=== PATIENT | male | born 1975 | race Caucasian/White ===

== ENCOUNTER 2016-07-30 10:43 | Inpatient (IN) | payer OTHER, MEDICARE ==
[~2016-07-30 10:43] MED LIST: CEFU1TAB43; FEXO180 PO; HYDR-2951; LACTATED RINGER'S 1000 ML INJ 2,000 ML IV ONE; NEXI40CA PO; NIAC500 PO; NORMOSOL R INJ 2,000 ML IV ONE; ONDANSETRON HCL 4 MG/2 ML VIAL IV PUSH ONE; PHENYLEPH/NS 1000 MCG/10 ML SYR IV ONE; PROPOFOL 200 MG/20 ML AMP IV ONE; ePHEDrine/NS 25 MG/5 ML SYR IV ONE
[2016-07-30 10:45] VITALS: BP 142/76; PULSE 78; RESP 20; TEMP 97.8; O2SAT 100
--- NOTE | 2016-07-30 10:59 | PD ---
HPI Chief Complaint: Headache Time Seen by Provider: 10:59 Travel History International Travel<30 days: No Contact w/Intl Traveler<30days: No Traveled to known affect area: No History of Present Illness HPI 40-year-old male came to the emergency room with history of headache. Patient has cerebral palsy and history of hydrocephalus. 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 His parents are here with him and mom is giving a thorough history. He has the shunt revised 5 times in the last one was April 2016. She described the shunt getting infected at the scalp region and had to be repositioned on the other side. However there was a CAT scan done in May 2016 where everything was back to normal as per his neurosurgeon. This morning he woke up with a headache and he points to the frontal region. He said that he vomited once or twice. Patient is awake and alert. As per the mother there is no change in mental status. His vital signs were stable. Mom has a folder with she keeps thorough records of all his medical reports and results. She had a CD of his last CAT scan from May 2016 in case a comparison study needs to be done. [facility] Past Medical History Narrative Medical List of his past medical history is reviewed from the nursing note. Arthritis: No Asthma: No Heart Rhythm Problems: No Cardiovascular Problems: Yes Chest Pain: No Congestive Heart Failure: No COPD: No Cerebrovascular Accident: No Diminished Hearing: No GERD: Yes Genitourinary: No Hiatal Hernia: No Kidney Stones: Yes Musculoskeletal: Yes Neurologic: Yes Reproductive: No Respiratory: Yes Migraines: No Seizures: No Ulcer: No Past Surgical History Abdominal Surgery: No Cardiac Surgery: No Ear Surgery: No Endocrine Surgery: No Eye Surgery: No Genitourinary Surgery: No Gynecologic Surgery: No Neurologic Surgery: Yes (SEWING MACHINE OPERATOR SHUNT AND SPINAL) Oral Surgery: No Thoracic Surgery: No Social History Alcohol Use: No Tobacco Use: No Substance Use: No Allergies-Medications (Allergen,Severity, Reaction): Coded Allergies: Cipro (Verified Adverse Reaction, Severe, Arrhythmias, 07/09/11) Latex (Verified Adverse Reaction, Severe, Rash, 07/09/11) Reglan (Verified Adverse Reaction, Severe, 07/09/11) AMS Comments List of his allergies reviewed from the nursing note. Reported Meds & Prescriptions Reported Meds & Active Scripts Active Reported Robaxin (Methocarbamol) 500 Mg Tab 500 Mg PO TID [Allegry Shots] 1 Injection IM Q14DAY Prolia Inj (Denosumab) 60 Mg/Ml Inj 60 Mg SQ Q180D Flonase Allergy Relief Nasal [place] (Fluticasone Nasal [place]) 50 Mcg/Act [place] 100 Mcg EACH NARE DAILY Montelukast (Montelukast Sodium) 10 Mg Tab 10 Mg PO HS Fexofenadine-Pseudoephedrine ER 12 HR 60-120 Mg Tab 1 Tab PO DAILY Tramadol (Tramadol HCl) 50 Mg Tab 100 Mg PO BID PRN Baclofen 20 Mg Tab 40 Mg PO BID Meloxicam 15 Mg Tab 15 Mg PO DAILY Lisinopril 10 Mg Tab 10 Mg PO DAILY Nexium (Esomeprazole DR) 20 Mg Capdr 20 Mg PO DAILY Narrative Medication List of his home medications reviewed from the nursing note. Review of Systems Except as stated in HPI: all other systems reviewed are Neg Physical Exam Narrative GENERAL: Awake, alert, cerebral palsy SKIN: Warm and dry. HEAD: Atraumatic. Normocephalic. EYES: Pupils equal and round. No scleral icterus. No injection or drainage. ENT: No nasal bleeding or discharge. Mucous membranes pink and moist. NECK: Trachea midline. No JVD. CARDIOVASCULAR: Regular rate and rhythm. No murmur appreciated. RESPIRATORY: No accessory muscle use. Clear to auscultation. Breath sounds equal bilaterally. GASTROINTESTINAL: Abdomen soft, non-tender, nondistended. Hepatic and splenic margins not palpable. MUSCULOSKELETAL: No obvious deformities. No clubbing. No cyanosis. No edema. NEUROLOGICAL: Awake and alert. No obvious cranial nerve deficits. Motor grossly within normal limits. Normal speech. PSYCHIATRIC: Appropriate mood and affect; insight and judgment normal. Data Data Last Documented VS Vital Signs Date Time Temp Pulse Resp B/P Pulse Ox O2 Delivery O2 Flow Rate FiO2 07/30/16 11:22 81 18 136/83 97 Room Air 07/30/16 10:45 97.8 Orders Electrocardiogram (07/30/16 ) Ct Brain W/O Iv Contrast(Rout) (07/30/16 ) Prochlorperazine Inj (Compazine Inj) (07/30/16 11:15) Ondansetron Inj (Zofran Inj) (07/30/16 11:15) Complete Blood Count With Diff (07/30/16 11:06) Basic Metabolic Panel (Bmp) (07/30/16 11:06) Shunt Series (07/30/16 ) Ct Abd/Pel W Iv Contrast(Rout) (07/30/16 ) Blood Culture (07/30/16 13:06) Urinalysis - C+S If Indicated (07/30/16 13:06) C-Reactive Protein (Crp) (07/30/16 13:06) Iohexol 350 Inj (Omnipaque 350 Inj) (07/30/16 14:17) Urine Culture (07/30/16 13:50) Skull, Limited (<4 Views) (07/30/16 ) Admit Order (Ed Use Only) (07/30/16 15:14) Labs Laboratory Tests Test 07/30/16 07/30/16 11:20 13:50 White Blood Count 8.2 TH/MM3 Red Blood Count 5.01 MIL/MM3 Hemoglobin 13.1 GM/DL Hematocrit 39.5 % Mean Corpuscular Volume 78.8 FL Mean Corpuscular Hemoglobin 26.1 PG Mean Corpuscular Hemoglobin 33.2 % Concent Red Cell Distribution Width 16.4 % Platelet Count 228 TH/MM3 Mean Platelet Volume 8.8 FL Neutrophils (%) (Auto) 76.0 % Lymphocytes (%) (Auto) 16.4 % Monocytes (%) (Auto) 6.2 % Eosinophils (%) (Auto) 1.1 % Basophils (%) (Auto) 0.3 % Neutrophils # (Auto) 6.2 TH/MM3 Lymphocytes # (Auto) 1.3 TH/MM3 Monocytes # (Auto) 0.5 TH/MM3 Eosinophils # (Auto) 0.1 TH/MM3 Basophils # (Auto) 0.0 TH/MM3 CBC Comment DIFF FINAL Differential Comment Prothrombin Time 10.7 SEC Prothromb Time International 1.0 RATIO Ratio Sodium Level 143 MEQ/L Potassium Level 3.8 MEQ/L Chloride Level 107 MEQ/L Carbon Dioxide Level 28.0 MEQ/L Anion Gap 8 MEQ/L Blood Urea Nitrogen 14 MG/DL Creatinine 0.74 MG/DL Estimat Glomerular Filtration 117 ML/MIN Rate Random Glucose 130 MG/DL Calcium Level 8.2 MG/DL C-Reactive Protein 2.70 MG/DL Urine Color YELLOW Urine Turbidity HAZY Urine pH 6.0 Urine Specific [place] 1.031 Urine Protein TRACE mg/dL Urine Glucose (UA) NEG mg/dL Urine Ketones TRACE mg/dL Urine Occult Blood NEG Urine Nitrite POS Urine Bilirubin NEG Urine Urobilinogen LESS THAN 2.0 MG/DL Urine Leukocyte Esterase LARGE Urine RBC 5 /hpf Urine WBC 58 /hpf Urine WBC Clumps RARE Urine Squamous Epithelial 2 /hpf Cells Urine Bacteria MANY /hpf Urine Mucus FEW /lpf Microscopic Urinalysis Comment CATH-CULTURE IND MDM Medical Decision Making Medical Screen Exam Complete: Yes Emergency Medical Condition: Yes Medical Record Reviewed: Yes Interpretation(s) Twelve-lead EKG was reviewed by me. Sinus rhythm, normal axis, nonspecific ST- T wave changes. Heart rate of 79 bpm. Differential Diagnosis Hydrocephalus, shunt malfunction Narrative Course 12:46 PM blood test results are back and within normal limits. CT scan was compared by the radiologist with his past CT that was in the disc. The radiologist called me and let me know that there has been a definite interval change of the ventricles are 2-3 times more dilated than the CT study that was done in June 12, 2016. This would point towards shunt malfunction. Given the fact that patient is symptomatic I have put a call out for the neurosurgeon on-call. Awaiting for her to call back. I will also order a shunt series. Patient will require admission. 1:07 PM I just spoke with the neurosurgeon Dr. Beard and discussed the case with her. She remotely looked at the CT and wanted a CT of his abdomen and pelvis to look at the tubing. She would come down and see the patient and talked to the parents and then decide what she plans to do. I've asked if she wanted to admit the patient but once again she suggested that she would like to see the CAT scan first and then speak with the parents and then make a decision. Currently waiting for her evaluation and recommendations. 2:23 PM shunt series was read as normal. Dr. Beard is in the room evaluating the patient. CT of the abdomen and pelvis was done as per her request. Awaiting for the report on that. Procedures EKG Prior to Arrival: Yes Diagnosis Primary Impression: Hydrocephalus Additional Impressions: SEWING MACHINE OPERATOR shunt malfunction Headache Qualified Code: R51 - Acute intractable headache, unspecified headache type Vomiting Qualified Code: R11.11 - Non-intractable vomiting without nausea, unspecified vomiting type Admitting Information Admitting Physician Requests: Admit Selam Martinez MD Jul 30, 2016 10:59
[2016-07-30] MEDS ORDERED: LISI10TA3 PO (11:12)
[2016-07-30] MEDS ORDERED: MELO-1 PO (11:12)
[2016-07-30] MEDS ORDERED: FEXO1TAB PO (11:12)
[2016-07-30] MEDS ORDERED: [UNRECOGNIZED DRUG - OTHER] IM (11:12)
[2016-07-30] MEDS ORDERED: BACL20TA PO (11:12)
[2016-07-30] MEDS ORDERED: NEXI20CA PO (11:12)
[2016-07-30] MEDS ORDERED: TRAM50TA PO (11:12)
[2016-07-30] MEDS ORDERED: FLUT1SPR5 EACH NARE (11:12)
[2016-07-30] MEDS ORDERED: ROBA500T PO (11:12)
[2016-07-30] MEDS ORDERED: MONT10TA4 PO (11:12)
[2016-07-30] MEDS ORDERED: DENO60P SQ (11:12)
[2016-07-30] MEDS ORDERED: ONDANSETRON HCL 4 MG/2 ML VIAL IV PUSH ONE (11:15)
[2016-07-30] MEDS ORDERED: PROCHLORPERAZINE INJ 10 MG/2 ML VIAL IVS ONE (11:15)
[2016-07-30 11:22] VITALS: BP 136/83; PULSE 81; RESP 18; O2SAT 97
[2016-07-30 11:37] LABS: AUTOMATED NEUTROPHIL # 6.2 TH/MM3 (1.8-7.7); BASOPHIL % 0.3 % (0.0-2.0); EOSINOPHIL # 0.1 TH/MM3 (0-0.4); EOSINOPHIL % 1.1 % (0.0-4.0); HEMATOCRIT 39.5 % (39.0-51.0); HEMO FLAGS DIFF FINAL; LYMPH % 16.4 % (9.0-44.0); LYMPHOCYTE # 1.3 TH/MM3 (1.0-4.8); MEAN CELL VOLUME 78.8 FL (80.0-100.0); MEAN CORPUSCULAR HEMOGLOBIN 26.1 PG (27.0-34.0); MEAN CORPUSCULAR HGB CONC 33.2 % (32.0-36.0); MONO % 6.2 % (0.0-8.0); PLATELET COUNT 228 TH/MM3 (150-450); RED BLOOD COUNT 5.01 MIL/MM3 (4.50-5.90); RED CELL DISTRIBUTION WIDTH 16.4 % (11.6-17.2); WHITE BLOOD COUNT 8.2 TH/MM3 (4.0-11.0)
[2016-07-30 11:54] LABS: POTASSIUM 3.8 MEQ/L (3.5-5.1)
--- NOTE | 2016-07-30 12:08 | RADRPT ---
EXAM DATE/TIME: 07/30/2016 11:50 This report includes an Addendum and supersedes previous reports for this exam. [facility] COMPARISON: No previous studies available for comparison. EXTERNAL COMPARISON : [facility] June 06, 2016 INDICATIONS : Cephalgia; vomiting. Recent shunt surgey. RADIATION DOSE: 56.38 CTDIvol (mGy) MEDICAL HISTORY : Cardiovascular disease. Spina bifida SURGICAL HISTORY : Shunt. ENCOUNTER: Initial ACUITY: 1 day PAIN SCALE: 5/10 LOCATION: cranial TECHNIQUE: Multiple contiguous axial images were obtained of the head. Using automated exposure control and adj ustment of the mA and/or kV according to patient size, radiation dose was kept as low as reasonably a chievable to obtain optimal diagnostic quality images. FINDINGS: There no prior studies for comparison. The ventricles are moderately dilated bilaterally. There is a ventricular shunt in place on the left side extending into the lateral horn of the left ventricle. No focal or acute intracranial hemorrhage is demonstrated. No mass effect or midline shift is seen. Pos tsurgical changes are noted in the right occipital lobe area most likely from a previous shunt placem ent. The fourth ventricle is midline but very small in size. There is effacement of the sulci bilater ally suggestive of edema. The quadrigeminal plate cisterns appear to be mildly effaced. There is an o ld francisco hole on the right occipital bone. Otherwise the calvarium is grossly intact. CONCLUSION: 1. Moderate diffuse dilatation of the third and lateral ventricles with a left ventricular catheter i n place. 2. No acute intracranial hemorrhage. 3. Effacement of the sulci bilaterally and effacement of the quadrigeminal plate cisterns suggestive of edema. This needs to be correlated with patient's current physical and clinical exam. 4. No prior studies for comparison. Tulio Trejo MD on July 30, 2016 at 12:03 Board Certified Radiologist. This report was verified electronically. ADDENDUM: An outside CT scan performed on 06/06/2016 was just made available for comparison. There has been a s ignificant interval change since the prior study. On the prior study the ventricles were decompressed and normal in size. The ventricles are now diffusely dilated characteristics of new hydrocephalus. T his is causing effacement of the quadrigeminal plate cisterns as well as effacement of the sulci. Thi s most likely is from shunt failure. The findings were discussed by telephone with the ER physician. Tulio Trejo MD on July 30, 2016 at 12:47 Board Certified Radiologist. This report was verified electronically.
--- NOTE | 2016-07-30 13:57 | RADRPT ---
EXAM DATE/TIME: 07/30/2016 13:19 [facility] COMPARISON: No previous studies available for comparison. INDICATIONS : Pain and headache. MEDICAL HISTORY : Spina bifida. SURGICAL HISTORY : Shunt placement. Alejandro rods. ENCOUNTER: Initial ACUITY: 1 day PAIN SCORE: 5/10 LOCATION: Head. FINDINGS: Radiograph of the skull, neck, chest and abdomen performed to evaluate shunt patency. The shunt cath eter is seen entering the left posterior parietal region with its tip in the region of the body of th e left lateral ventricle. The catheter is continuous in its course terminating in the left lower abdomen No catheter disruption is identified. There is an old shunt catheter along the right chest. The lungs are clear bilaterally. There is evidence of previous thoracic and lumbar surgery with fusion. CONCLUSION: Intact shunt. Tulio Trejo MD on July 30, 2016 at 13:53 Board Certified Radiologist. This report was verified electronically.
[2016-07-30] MEDS ORDERED: IOHEXOL 350 MG/ML 10 ML VIAL (for RAD DIAG) IV ONE (14:17)
[2016-07-30 14:26] LABS: BACTERIA, URINE MANY /hpf; BLOOD, URINE NEG (NEG); COMMENT (UR) CATH-CULTURE IND; CULTURE IF INDICATED CATH CULTURE IND; GLUCOSE,URINE NEG (NEG); KETONE, URINE TRACE mg/dL (NEG); MUCUS URINE FEW /lpf (OCC); SQUAMOUS EPITHELIAL CELL URINE 2 /hpf (0-5); URINE COLOR YELLOW (YELLW/STRAW)
[2016-07-30 14:27] LABS: NITRITE,URINE POS (NEG)
--- NOTE | 2016-07-30 14:27 | RADRPT ---
EXAM DATE/TIME: 07/30/2016 14:01 [facility] COMPARISON: No previous studies available for comparison. INDICATIONS : Evaluate for pseudocyst. IV CONTRAST: 95 cc Omnipaque 350 (iohexol) IV ORAL CONTRAST: No oral contrast ingested. RADIATION DOSE: 10.96 CTDIvol (mGy) MEDICAL HISTORY : Spina bifida. SURGICAL HISTORY : Shunt. ENCOUNTER: Initial ACUITY: 1 day PAIN SCALE: 0/10 LOCATION: abdomen/pelvis TECHNIQUE: Volumetric scanning of the abdomen and pelvis was performed. Using automated exposure control and ad justment of the mA and/or kV according to patient size, radiation dose was kept as low as reasonably achievable to obtain optimal diagnostic quality images. FINDINGS: LOWER LUNGS: The visualized lower lungs are clear. LIVER: Homogeneous density without lesion. There is no dilation of the biliary tree. No calcified gallston es. SPLEEN: Normal size without lesion. PANCREAS: Within normal limits. KIDNEYS: Normal in size and shape. There is no mass or hydronephrosis. There is a 7 mm stone in the upper erika e right kidney not causing obstruction. ADRENAL GLANDS: Within normal limits. VASCULAR: There is no aortic aneurysm. BOWEL/MESENTERY: The stomach, small bowel, and colon demonstrate no acute abnormality. There is no free intraperitone al air or fluid. There is an intraperitoneal catheter in place characteristic of a THERAPY AIDE shunt. There do es not appear to be any significant fluid collections or loculated fluid collections in the region of the catheter. The catheter was positioned in the left lower quadrant. ABDOMINAL WALL: Within normal limits. RETROPERITONEUM: There is no lymphadenopathy. BLADDER: No wall thickening or mass. REPRODUCTIVE: Within normal limits. INGUINAL: There is no lymphadenopathy or hernia. MUSCULOSKELETAL: There is evidence of chronic deformity of the bony structures with evidence of previous spinal fusion . CONCLUSION: 1. 7 mm nonobstructing stone upper pole right kidney. 2. There is THERAPY AIDE shunt catheter in the left lower quadrant of the abdomen. No free fluid or loculated f luid collections are seen in the region of the catheter. 3. No acute intra-abdominal/pelvic pathology. Tulio Trejo MD on July 30, 2016 at 14:21 Board Certified Radiologist. This report was verified electronically.
--- NOTE | 2016-07-30 14:40 | EKG ---
Date Performed: 07/30/2016 Time Performed: 10:58:13 PTAGE: 40 years EKG: Sinus rhythm Compared to previous tracing, previously seen T wave changes have improved NORMAL ECG PREVIOUS TRACING : 07/10/2011 09.52 DOCTOR: Lebron Franco Interpretating Date/Time 07/30/2016 14:39:15
[2016-07-30 15:21] VITALS: BP 130/77; PULSE 59; RESP 18; O2SAT 96
--- NOTE | 2016-07-30 15:43 | HHI.HP ---
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 He had a recent shunt revision after 23 yrs of no shunt problems in [facility]. The wound dehisced and a new shunt was placed on he left. He had a low grade fever but no emesis and no abdominal pain. Review of Systems ROS Limitations: Altered Mental Status Constitutional: COMPLAINS OF: Fatigue Endocrine: DENIES: Heat/cold intolerance, Polydipsia, Polyuria, Polyphagia Eyes: DENIES: Blurred vision, Diplopia, Eye inflammation, Eye pain, Vision loss , Photosensitivity, Double Vision Ears, nose, mouth, throat: DENIES: Tinnitus, Hearing loss, Vertigo, Nasal discharge, Oral lesions, Throat pain, Hoarseness, Ear Pain, Running Nose, Epistaxis, Sinus Pain, Toothache, Odynophagia Respiratory: DENIES: Apneas, Cough, Snoring, Wheezing, Hemoptysis, Sputum production, Shortness of breath Cardiovascular: DENIES: Chest pain, Palpitations, Syncope, Dyspnea on Exertion , PND, Lower Extremity Edema, Orthopnea, Claudication Gastrointestinal: DENIES: Abdominal pain, Black stools, Bloody stools, Constipation, Diarrhea, Nausea, Vomiting, Difficulty Swallowing, Anorexia Musculoskeletal: COMPLAINS OF: Neck pain Integumentary: DENIES: Abnormal pigmentation, Nail changes, Pruritus, Rash Hematologic/lymphatic: DENIES: Bruising, Lymphadenopathy Immunologic/allergic: DENIES: Eczema, Urticaria Past Family Social History Allergies: Coded Allergies: Cipro (Verified Adverse Reaction, Severe, Arrhythmias, 07/09/11) Latex (Verified Adverse Reaction, Severe, Rash, 07/09/11) Reglan (Verified Adverse Reaction, Severe, 07/09/11) AMS Past Medical History MM, wheelchair bound, CIC on his own Hydrocephalus, VPS at 3 weeks. Scoliosis, Past Surgical History VPS revised at 3 weeks, at 12yrs, the last March and April 2016 Scoliosis surgery and scoliosis repair Reported Medications Reported Meds & Active Scripts Active Reported Robaxin (Methocarbamol) 500 Mg Tab 500 Mg PO TID [Allegry Shots] 1 Injection IM Q14DAY Prolia Inj (Denosumab) 60 Mg/Ml Inj 60 Mg SQ Q180D Flonase Allergy Relief Nasal [place] (Fluticasone Nasal [place]) 50 Mcg/Act [place] 100 Mcg EACH NARE DAILY Montelukast (Montelukast Sodium) 10 Mg Tab 10 Mg PO HS Fexofenadine-Pseudoephedrine ER 12 HR 60-120 Mg Tab 1 Tab PO DAILY Tramadol (Tramadol HCl) 50 Mg Tab 100 Mg PO BID PRN Baclofen 20 Mg Tab 40 Mg PO BID Meloxicam 15 Mg Tab 15 Mg PO DAILY Lisinopril 10 Mg Tab 10 Mg PO DAILY Nexium (Esomeprazole DR) 20 Mg Capdr 20 Mg PO DAILY Family History MM in the family, father with RA Social History Lives with the parents but is independent for self care Physical Exam Vital Signs Vital Signs Date Time Temp Pulse Resp B/P Pulse Ox O2 Delivery O2 Flow Rate FiO2 07/30/16 15:21 59 18 130/77 96 Room Air 07/30/16 11:22 81 18 136/83 97 Room Air 07/30/16 10:45 97.8 78 20 142/76 100 Room Air Physical Exam Awake but lethargic, answers simple questions, pupils 3mm reactive but eye movements are disconjugate, down beating nystagmus present Speech slow, attention good, follows commands Moves both upper extremities without difficulty Wounds on the head are well healed and dry, Abd soft and non tender, obese, No rashes, open soars Laboratory Laboratory Tests Test 07/30/16 07/30/16 11:20 13:50 White Blood Count 8.2 Red Blood Count 5.01 Hemoglobin 13.1 Hematocrit 39.5 Mean Corpuscular Volume 78.8 Mean Corpuscular Hemoglobin 26.1 Mean Corpuscular Hemoglobin 33.2 Concent Red Cell Distribution Width 16.4 Platelet Count 228 Mean Platelet Volume 8.8 Neutrophils (%) (Auto) 76.0 Lymphocytes (%) (Auto) 16.4 Monocytes (%) (Auto) 6.2 Eosinophils (%) (Auto) 1.1 Basophils (%) (Auto) 0.3 Neutrophils # (Auto) 6.2 Lymphocytes # (Auto) 1.3 Monocytes # (Auto) 0.5 Eosinophils # (Auto) 0.1 Basophils # (Auto) 0.0 CBC Comment DIFF FINAL Differential Comment Sodium Level 143 Potassium Level 3.8 Chloride Level 107 Carbon Dioxide Level 28.0 Anion Gap 8 Blood Urea Nitrogen 14 Creatinine 0.74 Estimat Glomerular Filtration 117 Rate Random Glucose 130 Calcium Level 8.2 C-Reactive Protein 2.70 Urine Color YELLOW Urine Turbidity HAZY Urine pH 6.0 Urine Specific [place] 1.031 Urine Protein TRACE Urine Glucose (UA) NEG Urine Ketones TRACE Urine Occult Blood NEG Urine Nitrite POS Urine Bilirubin NEG Urine Urobilinogen LESS THAN 2.0 Urine Leukocyte Esterase LARGE Urine RBC 5 Urine WBC 58 Urine WBC Clumps RARE Urine Squamous Epithelial 2 Cells Urine Bacteria MANY Urine Mucus FEW Microscopic Urinalysis Comment CATH-CULTURE IND Date/Time Procedure Status Source Growth 07/30/16 13:50 Urine Culture Received Urine Catheterized Urine Pending 07/30/16 13:45 Aerobic Blood Culture Received Blood Peripheral Pending 07/30/16 13:45 Anaerobic Blood Culture Received Blood Peripheral Pending Result Diagram: 07/30/16 1120 07/30/16 1120 Imaging Last Impressions Shunt Study (Imaging) 07/30/16 0000 Signed Impressions: Service Date/Time: Saturday, July 30, 2016 13:19 - CONCLUSION: Intact shunt. Tulio Trejo MD Head CT 07/30/16 0000 Signed Impressions: Service Date/Time: Saturday, July 30, 2016 11:50 - CONCLUSION: 1. Moderate diffuse dilatation of the third and lateral ventricles with a left ventricular catheter in place. 2. No acute intracranial hemorrhage. 3. Effacement of the sulci bilaterally and effacement of the quadrigeminal plate cisterns suggestive of edema. This needs to be correlated with patient's current physical and clinical exam. 4. No prior studies for comparison. Tulio Trejo MD ADDENDUM: An outside CT scan performed on 06/06/2016 was just made available for comparison. There has been a significant interval change since the prior study. On the prior study the ventricles were decompressed and normal in size. The ventricles are now diffusely dilated characteristics of new hydrocephalus. This is causing effacement of the quadrigeminal plate cisterns as well as effacement of the sulci. This most likely is from shunt failure. The findings were discussed by telephone with the ER physician. Tulio Trejo MD Abdomen/Pelvis CT 07/30/16 0000 Signed Impressions: Service Date/Time: Saturday, July 30, 2016 14:01 - CONCLUSION: 1. 7 mm nonobstructing stone upper pole right kidney. 2. There is LICENSING AND REGISTRATION DIRECTOR shunt catheter in the left lower quadrant of the abdomen. No free fluid or loculated fluid collections are seen in the region of the catheter. 3. No acute intra-abdominal/pelvic pathology. Tulio Trejo MD Assessment and Plan Diagnosis: (1) Malfunction of ventriculoperitoneal shunt ICD Code: T85.09XA Assessment and Plan Shunt malfunction, recent wound dehiscence, will a revision. The risk of infection, anesthesia, mechanical complications, blood clots and pneumonia were discussed with the mother. Problem Qualifiers (1) Malfunction of ventriculoperitoneal shunt: Qualified Code: T85.09XA - Malfunction of ventriculoperitoneal shunt, initial encounter Favian Beard Jul 30, 2016 15:43
--- NOTE | 2016-07-30 15:45 | RADRPT ---
EXAM DATE/TIME: 07/30/2016 14:38 [facility] COMPARISON: No previous studies available for comparison. INDICATIONS : Evaluate valve reading for Strata valve. MEDICAL HISTORY : None. SURGICAL HISTORY : Shunt placement. ENCOUNTER: Initial ACUITY: 1 day PAIN SCORE: 0/10 LOCATION: Skull. FINDINGS: Single spot film obtained. The triangular radiopaque density appears to point inferiorly. CONCLUSION: Valve components are somewhat blurry but the arrow appears to point inferiorly, unchanged from exam e magaly today. Edwin Quintana MD on July 30, 2016 at 15:39 Board Certified Radiologist. This report was verified electronically.
[2016-07-30] MEDS ORDERED: oxyCODONE/ACETAMINOPHEN 5 MG/325 MG TAB PO PRN (16:00)
[2016-07-30] MEDS ORDERED: MORPHINE SULFATE 4 MG/ML INJ IV PRN (16:00)
[2016-07-30] MEDS ORDERED: traMADol HCL 50 MG TAB PO PRN (16:15)
[2016-07-30] MEDS ORDERED: THROMBIN (TOPICAL) 5,000 UNIT VIAL ONE (16:46)
[2016-07-30] MEDS ORDERED: GENTAMICIN SULFATE 80 MG/2 ML VIAL ONE (16:47)
[2016-07-30] MEDS ORDERED: LIDOCAINE 1%/EPINEPHrine 1:100,000 SOLN 20 ML VIAL ONE (16:47)
[2016-07-30] MEDS ORDERED: GELFOAM SIZE 100 ONE ×2 (16:47→17:47)
[2016-07-30] MEDS: PANTOPRAZOLE SODIUM 40 MG VIAL IV SCH (16:49)
[2016-07-30] MEDS: ceFAZolin 2 GM PREMIX 50 ML IV SCH (16:50)
[2016-07-30 16:52] VITALS: BP 150/70; PULSE 87; RESP 18; O2SAT 96
[2016-07-30 17:02] LABS: PROTHROMBIN TIME - PATIENT 10.7 SEC (9.8-11.6)
[2016-07-30] MEDS ORDERED: fentaNYL CITRATE 250 MCG/5 ML AMP ONE ×2 (17:30→19:19)
[2016-07-30] MEDS ORDERED: FAMOTIDINE 20 MG/2 ML VIAL ONE (17:31)
[2016-07-30] MEDS ORDERED: SUGAMMADEX SODIUM 200 MG/2 ML VIAL IV PUSH ONE ×2 (18:32)
[2016-07-30] MEDS: SODIUM CHLOR 0.9% 1000 ML INJ 1,000 ML IV SCH (19:25)
[2016-07-30] MEDS ORDERED: DO NOT ADM ANY ANTICOAGULANT DRUGS XX PRN (19:30)
[2016-07-30] MEDS ORDERED: *morphine SULFATE 8 MG/ML PERIprocedure ONLY ONE (19:34)
[2016-07-30] MEDS ORDERED: *MEPERIDINE 25 MG INJ VIAL PERIprocedural Use ONLY ONE (19:40)
[2016-07-30 20:00] VITALS: BP 117/93; PULSE 75; RESP 18; TEMP 96.9; O2SAT 96
[2016-07-30] MEDS: SODIUM CHLORIDE 0.9% FLUSH 5 ML FLUSH IV FLUSH SCH (21:47)
[2016-07-30] MEDS: BACLOFEN 20 MG TAB PO SCH (21:47)
[2016-07-30] MEDS: METHOCARBAMOL 500 MG TAB PO SCH (21:47)
[2016-07-31] VITALS: BP 139/70; PULSE 111; RESP 20; TEMP 97.6; O2SAT 95
[2016-07-31] MEDS: ceFAZolin 2 GM PREMIX 50 ML IV SCH ×2 (00:33→09:23)
[2016-07-31] MEDS: SODIUM CHLOR 0.9% 1000 ML INJ 1,000 ML IV SCH ×2 (02:00→10:55)
[2016-07-31 04:00] VITALS: BP 128/84; PULSE 113; RESP 18; TEMP 97; O2SAT 97
[2016-07-31 07:39] VITALS: O2SAT 94
[2016-07-31 08:00] VITALS: BP 147/83; PULSE 105; RESP 19; TEMP 97.2; O2SAT 96
[2016-07-31] MEDS ORDERED: LISINOPRIL 10 MG TAB PO SCH (09:00)
[2016-07-31] MEDS: METHOCARBAMOL 500 MG TAB PO SCH (09:23)
[2016-07-31] MEDS: BACLOFEN 20 MG TAB PO SCH (09:23)
[2016-07-31] MEDS: PANTOPRAZOLE SODIUM 40 MG VIAL IV SCH (09:24)
[2016-07-31] MEDS: SODIUM CHLORIDE 0.9% FLUSH 5 ML FLUSH IV FLUSH SCH (09:24)
--- NOTE | 2016-07-31 11:09 | HHI.DS ---
Discharge Summary Admission Date Jul 30, 2016 at 15:15 Discharge Date: Jul 31, 2016 Admitting Diagnosis hydrocephalus, [employer]ACHINE [employer]PER[employer] shunt malfunction (1) Hydrocephalus Diagnosis: Secondary ICD Code: G91.9 (2) Malfunction of ventriculoperitoneal shunt Diagnosis: Principal ICD Code: T85.09XA Brief History 40 yr old with thoracic level myelomeningocele presents with gradual worsening of headaches and mentation over the past few days. He had a recent shunt revision after 23 yrs of no shunt problems in [facility]. The wound dehisced and a new shunt was placed on he left. He had a low grade fever but no emesis and no abdominal pain. CBC/BMP: 07/30/16 1120 07/30/16 1120 Significant Findings Laboratory Tests Test 07/30/16 07/30/16 11:20 13:50 Mean Corpuscular Volume 78.8 FL (80.0-100.0) Mean Corpuscular Hemoglobin 26.1 PG (27.0-34.0) Neutrophils (%) (Auto) 76.0 % (16.0-70.0) Random Glucose 130 MG/DL (74-106) Calcium Level 8.2 MG/DL (8.5-10.1) C-Reactive Protein 2.70 MG/DL (0.00-0.30) Urine Turbidity HAZY (CLEAR) Urine Ketones TRACE mg/dL (NEG) Urine Nitrite POS (NEG) Urine Leukocyte Esterase LARGE (NEG) Urine RBC 5 /hpf (0-3) Urine WBC 58 /hpf (0-5) Urine WBC Clumps RARE (NONE) Urine Bacteria MANY /hpf (NONE) Urine Mucus FEW /lpf (OCC) Hospital Course The patient was evaluated in the ED and underwent replacement of the delta 1.5 valve to a very low pressure Hakim valve. His mentation, headaches and vision improved. Pt Condition on Discharge: Good Discharge Disposition: Discharge Home Discharge Instructions DIET: Follow Instructions for: As Tolerated, No Restrictions, Heart Healthy Diet Speech Therapy-Diet Recommenda: Regular ACTIVITIES You can perform: Weight Bearing As Sarah Activities to Avoid: Strenuous Activity Favian Beard Jul 31, 2016 11:09
[2016-07-31 12:03] LABS: SUPERNATE COLOR TUBE #1 CLEAR (CLEAR)
[2016-07-31 12:04] LABS: GROSS BLOOD TUBE #3 0 (0); SUPERNATE COLOR TUBE #2 CLEAR (CLEAR); SUPERNATE COLOR TUBE #3 CLEAR (CLEAR)
[2016-07-31 12:05] LABS: VOLUME TUBE # 2 0.3 ML; WBC TUBE #3 0 /MM3 (0-10)
[2016-07-31 12:06] LABS: CSF LYMPHOCYTES 0 %; CSF NEUTROPHILS 0 %
--- NOTE | 2016-08-01 13:20 | MP ---
cc: FAVIAN DEGROOT MD DATE OF SURGERY 07/30/2016 PREOPERATIVE DIAGNOSIS Shunt malfunction. POSTOPERATIVE DIAGNOSIS Proximal shunt malfunction. PROCEDURE 1. Proximal CARPET LAYER shunt revision, replacement. 2. Replacement of a 1.5 Delta valve to a Codman-Hakim very low pressure valve. Reference Number [id number]. Lot Number [id number]. ANESTHESIA general SURGEON DR Degroot INDICATION The patient is a 40-year-old gentleman who presented with headaches, down-beating nystagmus and nausea. He was found to have enlarged ventricles on CT scan. He was taken to the operating room for shunt revision. OPERATIVE PROCEDURE The patient was taken to the operating room, placed supine on the OR table. Anesthesia was induced and the patient intubated orally. His previous left parietal valve incision was prepped as well as the left chest and abdomen with Betadine on the head and DuraPrep on the abdomen. The scalp incision was infiltrated with 1% lidocaine with epinephrine. The incision was first made with a 15 blade and carried down to the periosteum with monopolar cautery. Th Delta 1.5 valve was exposed and disconnected proximally. Good CSF flow was seen. The CSF was clear. It was sent for routine chemistries and cultures. The valve was then removed and distal flow was observed with a manometer. Excellent distal flow was seen, very rapid, down to 15 cm of water and then slower from 15 to 0 cm of water. A new Codman-Hakim very low pressure valve was then connected to the proximal and distal catheters with 2-0 silk ties. The wound was then generously irrigated with saline. The galea and dermis were reapproximated with 2-0 Vicryl sutures. The skin edges were closed with a running 3-0 nylon suture. The wound was dressed with an island dressing and Medipore tape. The patient was then extubated and brought back to the recovery room in stable condition. ESTIMATED BLOOD LOSS Estimated at 20 cc. Favian Degroot MD YYG/SSB /7:05 PM /1:12 PM [facility]
== END 2016-07-31 12:03 | disposition home or self-care (01) | DRG 32 ==
LOC: NEPC 10:43 → NEDA 15:15 → N05A 20:01
PROVIDERS: ADMIT Neurological Surgery; ATTEND Neurological Surgery
PROC: 00W63JZ Revision of Synthetic Substitute in Cerebral Ventricle, Percutaneous Approach (ICD-10-PCS; principal; 2016-07-30 17:34)
DX: T85.01XA Breakdown (mechanical) of ventricular intracranial (communicating) shunt, initial encounter (principal); Q05.4 Unspecified spina bifida with hydrocephalus; G80.9 Cerebral palsy, unspecified; H55.00 Unspecified nystagmus; K21.9 Gastro-esophageal reflux disease without esophagitis; Y75.2 Prosthetic and other implants, materials and neurological devices associated with adverse incidents; Z88.1 Allergy status to other antibiotic agents; Z91.040 Latex allergy status; Z99.3 Dependence on wheelchair
CPT/HCPCS: 70250; 70450; 71010; 72040; 74000; 74177; 80048; 81001; 84157; 85025; 85610; 86140; 87015; 87040; 87070; 87077; 87086; 87102; 87116; 87186; 87205; 87206; 89051; 93005; 96374; 96375; C9113; J0690; J0780; J1580; J2175; J2270; J2370; J2405; J3010; J7030; J7120; Q9967